=== PATIENT | male | born 1990 | race Caucasian/White ===

== ENCOUNTER 2020-06-06 07:25 | Day surgery (SDC) | payer OTHER, SELFPAY ==
[~2020-06-06] VITALS: Ht 185.4 cm; Wt 129.3 kg
[2020-06-06] MEDS ORDERED: HYDROmorphone 1 MG INJ. 1 MG/ML AMPUL IVP PRN ×2 (10:15)
[2020-06-06] MEDS ORDERED: NACL 0.9% 1,000 ML IV ONE (10:15)
[2020-06-06] MEDS ORDERED: ONDANSETRON HCL 4 MG/2 ML VIAL IVP PRN (10:15)
[2020-06-06] MEDS ORDERED: MIDAZOLAM HCL 2 MG/2 ML VIAL (VERSED) IVP PRN (10:15)
[2020-06-06] MEDS ORDERED: METOCLOPRAMIDE HCL 10 MG/2 ML VIAL IVP PRN (10:15)
[2020-06-06] MEDS ORDERED: MEPERIDINE HCL/PF 25 MG/ML DISP.SYRIN IVP PRN (10:15)
[2020-06-06] MEDS ORDERED: INSULIN REGULAR, HUMAN 100 UNITS/ML, 10 ML VIAL (humuLIN R) ONE (11:52)
[2020-06-06] MEDS ORDERED: INSULIN REGULAR, HUMAN 100 UNITS/ML, 10 ML VIAL (humuLIN R) SUBCUT ONE (12:00)
[2020-06-06 12:20] VITALS: BP_SYST 111
== END 2020-06-06 14:00 | disposition home or self-care (01) ==
LOC: SDS 07:25
PROVIDERS: ATTEND Otolaryngology
DX: J38.3 Other diseases of vocal cords (principal); D38.0 Neoplasm of uncertain behavior of larynx; I10 Essential (primary) hypertension; E11.9 Type 2 diabetes mellitus without complications; E66.01 Morbid (severe) obesity due to excess calories; Z79.899 Other long term (current) drug therapy
CPT/HCPCS: 31541; 36415; 71046; 82948; 82962; 87426; 88305; 88331; 88341; 88342; 88361; J1815